=== PATIENT | female | born 1960 | race Caucasian/White ===

== ENCOUNTER → 2016-04-13 | Outpatient (CLI) | payer OTHER ==
[~2016-04-13] MED LIST: ADAL40KI SC; ALBUAER19 INH; DICL-201 PO; EPP3/2 IM; FOLI1TAB7 PO; HYDC25 PO; LEVO150T PO; LOSA50TA6 PO; METH2.5T PO; MOME200A INH; NTRGSL/4 UT; PRED20TA2 PO; RANI150T3 PO; SYN175 PO
[2016-04-13 13:25] LABS: HEMATOCRIT 41.9 % (37-47); MEAN CELL VOLUME 92.3 fL (80-100); MEAN CORPUSCULAR HEMOGLOBIN 32.2 pg (25-34); MEAN CORPUSCULAR HGB CONC 34.8 g/dl (32-36); MEAN PLATELET VOLUME 11.3 fL (7.4-10.4); PLATELET COUNT 243 K/uL (130-400); RED BLOOD COUNT 4.54 M/uL (4.2-5.4); WHITE BLOOD COUNT 6.11 K/uL (4.8-10.8)
[2016-04-13 13:34] LABS: ALT/SGPT 72 U/L (12-78); CREATININE 0.98 mg/dl (0.60-1.20)
[2016-04-13 13:36] LABS: ALKALINE PHOSPHATASE 76 U/L (45-117); AST/SGOT 30 U/L (15-37)
== END | disposition home or self-care (01) ==
LOC: C.LAB1850 11:44
PROVIDERS: ATTEND Internal Medicine Rheumatology
DX: M46.90 Unspecified inflammatory spondylopathy, site unspecified (principal); Z79.899 Other long term (current) drug therapy

== ENCOUNTER → 2016-10-06 | Outpatient (CLI) | payer OTHER ==
[2016-10-06 15:01] LABS: THYROID STIMULATING HORMONE 0.493 uIu/ml (0.300-4.500)
== END | disposition home or self-care (01) ==
LOC: C.LAB1850 13:06
PROVIDERS: ATTEND Family Medicine
DX: E03.9 Hypothyroidism, unspecified (principal)

== ENCOUNTER → 2016-10-14 | Outpatient (CLI) | payer OTHER | END | disposition home or self-care (01) | LOC: C.PATHSPEC 11:33 | PROVIDERS: ATTEND Surgery | DX: R22.9 Localized swelling, mass and lump, unspecified (principal); D18.09 Hemangioma of other sites ==

== ENCOUNTER 2016-10-18 15:54 | Emergency (ER) | payer OTHER ==
[~2016-10-18] VITALS: Ht 170.2 cm; Wt 111.9 kg
[~2016-10-18 15:54] MED LIST changes: -EPP3/2 IM; -FOLI1TAB7 PO; -METH2.5T PO; -PRED20TA2 PO; -RANI150T3 PO
[2016-10-18 15:57] VITALS: TEMP 36.8; Ht 170.2 cm; Wt 111.9 kg
[2016-10-18] MEDS ORDERED: DiphenhydrAMINE HCL 50 MG/ML VIAL IV STA (15:58)
[2016-10-18] MEDS ORDERED: METHYLPREDNISOLONE 125 MG VIAL IV STA (15:58)
[2016-10-18] MEDS ORDERED: SODIUM CHLORIDE 0.9% 1000ML 1,000 ML IV STA (15:58)
[2016-10-18] MEDS ORDERED: RANITIDINE HCL 50 MG/100 ML D5W IV STA (15:58)
[2016-10-18 16:02] VITALS: O2SAT 97
[2016-10-18] MEDS ORDERED: ONDANSETRON INJ 2 MG/ML 2 ML VIAL ONE (16:04)
[2016-10-18] MEDS ORDERED: ONDANSETRON INJ 2 MG/ML 2 ML VIAL IV STA (16:04)
[2016-10-18] MEDS ORDERED: METH2.5T PO (16:33)
[2016-10-18] MEDS ORDERED: FOLI1TAB7 PO (16:33)
--- NOTE | 2016-10-18 16:47 | EMERGENCY ROOM VISIT NOTE ---
ED Visit Note First contact with patient: 15:57 CHIEF COMPLAINT: Allergic reaction HISTORY OF PRESENT ILLNESS: This 56 y/o female patient presents to the emergency department 20 minutes after they developed sudden onset of SOB and itching after being stung by a bee. The patient gave herself an epipen The patient does not have swelling of the face and lips or a sensation of swelling in the throat. The patient has had shortness of breath. Has not had previous reactions and like this before. REVIEW OF SYSTEMS: A review of systems was performed with positives and pertinent negatives listed in the history of present illness. All other systems were reviewed and are negative. ALLERGIES: Bees, CHeese, Hydromorphone, Latex, Milk, Pens, Yogurt MEDICATIONS: See Nursing notes PMH: Allergic reactions SOCIAL HISTORY: Lives at home with PHYSICAL EXAM:VITALS: Vitals are noted on the nurse's note and reviewed by myself. Vital signs stable. GENERAL: 56 year old female, in moderate distress, nondiaphoretic, well- developed well-nourished. THROAT: No pharyngeal edema or injection, no exudates or tonsillar hypertrophy. Airway patent. LUNGS: Clear to auscultation and breath sounds equal, no wheezes, rales, or rhonchi. EYES: PERRLA, EOMI, no discharge or injection. NEUROLOGICAL: Alert and oriented to person, place, and time. Normal sensation to light and sharp touch. HEART: Regular rate without murmurs, ectopy, gallops, or rubs. SKIN: Diffuse urticarial rash, beesting present Rt leg. The lips are not swollen. There is no periorbital swelling. EMERGENCY DEPARTMENT COURSE: I examined the patient. The patient was given Solumedrol, Zantac and Benadryl. EKG was observed by me shows sinus bradycardia with first-degree AV block with no ectopy or ischemia unchanged from previous.Rate of 79. Patient was frequently reassessed in the emergency department and had much improvement after the medications. She was observed for a total of 2 hours in the emergency department. [place] much improved and was discharged in stable condition with the instructions noted below. DIAGNOSIS: Allergic Reaction DISCHARGE INSTRUCTIONS & TREATMENT: Benadryl 50 mg every 6 hrs PLUS Zantac 150 mg every 12 hrs PLUS Prednisone once a day for itch. Keep cool - no hot showers. Follow-up family Current/Historical Medications Scheduled Adalimumab (Humira Pen), 40 MG SC [id number] Diclofenac (Voltaren), 75 MG PO BID Hydrochlorothiazide (Hctz *), 25 MG PO QAM Levothyroxine Sodium (Synthroid), 1 TAB PO Q2D Levothyroxine Sodium (Synthroid), 150 MCG PO Q2D Losartan Potassium (Cozaar), 50 MG PO QAM Nitroglycerin (Nitrostat), 0.4 MG UT PRN Scheduled PRN Albuterol Inhaler (Ventolin Inhaler), 2 PUFFS INH QID PRN for SOB/Wheezing Mometasone Furoate-Formoterol (Dulera 200/5 Mcg), 2 AER INH BID PRN for ASTHMA EXACERBATION Allergies Coded Allergies: Butalbital (Verified Allergy, Severe, HIVES, 09/16/15) Latex (Verified Allergy, Severe, ITCHING / ASTHMA, 09/16/15) Cheese (Verified Allergy, Intermediate, DAIRY CAUSES JOINT SWELLING AND GI UPSET, 09/16/15) Milk (Verified Allergy, Intermediate, DAIRY CAUSES JOINT PAIN AND GI UPSET , 09/16/15) Yogurt (Verified Allergy, Intermediate, DAIRY CAUSES JOINT PAIN AND GI UPSET, 09/16/15) BEE STING (Verified Allergy, Unknown, HIVES, 09/16/15) Hydromorphone (Verified Allergy, Unknown, difficulty swallowing, 09/16/15) pt Penicillins (Verified Allergy, Unknown, HIVES, 09/16/15) Vital Signs Date Time Temp Pulse Resp B/P (MAP) Pulse Ox O2 Delivery O2 Flow Rate FiO2 10/18/16 16:26 82 18 116/70 96 Nasal Cannula 2.0 10/18/16 16:10 94 20 115/80 95 Nasal Cannula 2.0 10/18/16 16:05 97 Room Air 10/18/16 16:02 97 Nasal Cannula 2.0 10/18/16 16:02 97 Nasal Cannula 2.0 10/18/16 15:57 36.8 134 24 160/77 95 Room Air Medications Administered Medications (Trade) Dose Ordered Sig/Chris Route Start Time Stop Time Status Last Admin Dose Admin Sodium Chloride 1,000 ml @ 999 mls/hr Q1H1M STAT IV 10/18/16 15:58 10/18/16 16:58 10/18/16 16:03 999 MLS/HR Methylprednisolone Sodium Succinate (Solu-Medrol IV) 125 mg NOW STAT IV 10/18/16 15:58 10/18/16 16:00 DC 10/18/16 16:03 125 MG Ranitidine HCl (zANTac IV) 50 mg NOW STAT IV 10/18/16 15:58 10/18/16 16:00 DC 10/18/16 16:03 50 MG Diphenhydramine HCl (Benadryl Inj) 50 mg NOW STAT IV 10/18/16 15:58 10/18/16 16:00 DC 10/18/16 16:03 50 MG Ondansetron HCl (Zofran Inj) 4 mg NOW STAT IV 10/18/16 16:04 10/18/16 16:05 DC 10/18/16 16:09 4 MG Departure Information Referrals Brooklyn Kaur DO (PCP) Patient Instructions My [facility]
[2016-10-18] MEDS ORDERED: RANI150T3 PO (17:46)
[2016-10-18] MEDS ORDERED: EPP3/2 IM (17:46)
[2016-10-18] MEDS ORDERED: PRED20TA2 PO (17:46)
[2016-10-18 17:58] VITALS: BP 142/69; PULSE 78; O2SAT 97
== END 2016-10-18 17:53 | disposition home or self-care (01) ==
LOC: C.EDB 15:55 → C.ED 17:53
DX: T63.441A Toxic effect of venom of bees, accidental (unintentional), initial encounter (principal); X58.XXXA Exposure to other specified factors, initial encounter; Z79.899 Other long term (current) drug therapy

== ENCOUNTER → 2016-10-19 | Outpatient (CLI) | payer OTHER ==
[~2016-10-19] MED LIST changes: +EPP3/2 IM; +FOLI1TAB7 PO; +METH2.5T PO; +PRED20TA2 PO; +RANI150T3 PO
--- NOTE | 2016-10-19 14:45 | DIAGNOSTIC IMAGING REPORT ---
RIGHT FOOT MIN 3 VIEWS ROUTINE CLINICAL HISTORY: M46.90 [id number] Long-term use of immunosuppress Right COMPARISON: None. DISCUSSION: Small heel spur. Small bunion deformity distal first metatarsal. No acute bony abnormality. Cortical margins are intact. No significant soft tissue edema IMPRESSION: Small bunion deformity distal first metatarsal. Heel spur. Otherwise negative study The above report was generated using voice recognition software. It may contain grammatical, syntax or spelling errors. Electronically signed by: Sadiq Rodríguez M.D. 10/19/2016 2:44 PM Dictated Date/Time: 10/19/2016 2:43 PM
== END | disposition home or self-care (01) ==
LOC: C.RAD1850 14:20
PROVIDERS: ATTEND Internal Medicine Rheumatology
DX: M46.90 Unspecified inflammatory spondylopathy, site unspecified (principal); M79.671 Pain in right foot; Z79.1 Long term (current) use of non-steroidal anti-inflammatories (NSAID); Z79.899 Other long term (current) drug therapy; M21.611 Bunion of right foot; M77.31 Calcaneal spur, right foot

== ENCOUNTER → 2016-10-22 | Outpatient (CLI) | payer OTHER | END | disposition home or self-care (01) | LOC: C.PATHSPEC 17:02 | PROVIDERS: ATTEND Orthopaedic Surgery | DX: L98.0 Pyogenic granuloma (principal) ==

== ENCOUNTER → 2017-04-15 | Outpatient (CLI) | payer OTHER ==
[~2017-04-15] MED LIST changes: -FOLI1TAB7 PO; +FOLI1TAB8 PO; -RANI150T3 PO
--- NOTE | 2017-04-15 15:01 | DIAGNOSTIC IMAGING REPORT ---
CHEST 2 VIEWS ROUTINE HISTORY: Z20.1 Tuberculosis [id number] COMPARISON: Chest 04/14/2015. FINDINGS: The lungs are clear. Cardiac silhouette is normal in size. No pleural effusions. No pneumothorax. IMPRESSION: No acute process. Electronically signed by: Declan Geller M.D. 04/15/2017 3:00 PM Dictated Date/Time: 04/15/2017 2:57 PM
== END | disposition home or self-care (01) ==
LOC: C.RAD1850 14:49
PROVIDERS: ATTEND Internal Medicine Rheumatology
DX: Z20.1 Contact with and (suspected) exposure to tuberculosis (principal)

== ENCOUNTER → 2017-05-03 | Outpatient (CLI) | payer OTHER ==
[~2017-05-03] MED LIST changes: -PRED20TA2 PO
--- NOTE | 2017-05-05 14:30 | MAMMOGRAPHY REPORT ---
BILATERAL DIGITAL SCREENING MAMMOGRAM TOMOSYNTHESIS WITH CAD: 05/03/2017 CLINICAL HISTORY: Routine screening. Patient has no complaints. TECHNIQUE: Breast tomosynthesis in addition to standard 2D mammography was performed. Current study was also evaluated with a Computer Aided Detection (CAD) system. COMPARISON: Comparison is made to exam dated: 04/08/2005, 08/28/08, 10/15/09, 11/24/10, 07/18/12, 08/01/13, 08/06/14 mammograms. BREAST COMPOSITION: There are scattered areas of fibroglandular density in both breasts. FINDINGS: There is a newly visualized 5 mm focal asymmetry in the lower inner middle one third of the left breast, for which additional spot compression tomosynthesis views and possible ultrasound are r ecommended. There are scattered benign-appearing round and punctate microcalcifications, stable compared to prior exams. No other suspicious masses, calcifications, areas of architectural distortion or asymmetries are seen bilaterally. IMPRESSION: ACR BI-RADS CATEGORY 0: INCOMPLETE EVALUATION: NEED ADDITIONAL IMAGING EVALUATION A newly visualized 5 mm focal asymmetry in the lower inner left breast needs additional imaging evalu ation. The patient will be contacted to schedule an appointment. Approximately 10% of breast cancers are not detected with mammography. A negative mammographic report should not delay biopsy if a clinically suggestive mass is present. Margoth Nj M.D. ay/:05/05/2017 09:19:24 Informatica Developer: Thai Padilla M, [facility] letter sent: Addl Imaging 0 BI-RADS Code: ACR BI-RADS Category 0: Incomplete Evaluation: Need Additional Imaging Evaluation
== END | disposition home or self-care (01) ==
LOC: C.MAMM 13:54
PROVIDERS: ATTEND Family Medicine
DX: Z12.31 Encounter for screening mammogram for malignant neoplasm of breast (principal); N64.89 Other specified disorders of breast

== ENCOUNTER → 2017-05-18 | Outpatient (CLI) | payer OTHER ==
--- NOTE | 2017-05-18 15:14 | MAMMOGRAPHY REPORT ---
UNILATERAL LEFT DIGITAL DIAGNOSTIC MAMMOGRAM TOMOSYNTHESIS AND TARGETED LEFT ULTRASOUND: 05/18/2017 CLINICAL HISTORY: 57-year-old woman called back from screening mammography for a focal asymmetry in t he lower inner quadrant of the left breast. Family history of breast cancer = mother. During this d iagnostic appointment, the patient also reported a palpable ridge and pain in the superior left breas t, for which additional targeted ultrasound was performed. TECHNIQUE: Spot compression left CC and MLO tomosynthesis images were obtained. COMPARISON: Comparison is made to exams dated: 05/03/2017 mammogram - [facility], 02/2015 mammogram, 08/01/2013 mammogram, 07/18/2012 mammogram, 11/24/2010 mammogram, and 10/15/2009 mammog daysi [facility]. BREAST COMPOSITION: There are scattered areas of fibroglandular density in the left breast. FINDINGS: The additional spot compression tomosynthesis views of the left breast demonstrate a persi stent low-density round, partially circumscribed mass measuring 4.5 x 4.1 x 5.4 mm. No associated ca lcification or architectural distortion. Further characterization with ultrasound was performed. Targeted ultrasound was performed in the lower inner quadrant of the left breast. In the 8:00 axis, 5 cm from the nipple, there is a predominantly anechoic cystic appearing mass with internal echogenic focus and gently lobulated borders, parallel in orientation. No internal vascularity is demonstrate d. It measures approximately 5.2 x 2.1 x 2.5 mm and likely correlates with the mammographic mass. T his most likely represents a complicated cyst but a short interval follow-up targeted ultrasound is r ecommended to ensure stability in 6 months. Then additional ultrasound scanning was performed in the 12:00 left breast, 2 cm from the nipple, in the area of palpable ridge and pain described by the patient. Sonographically normal dense fibroglan dular tissue is seen without a suspicious solid or cystic mass. IMPRESSION: ACR-BI-RADS CATEGORY 3: PROBABLY BENIGN, TARGETED ULTRASOUND ACR-BI-RADS CATEGORY 3: PRO BABLY BENIGN 1. A persistent focal asymmetry/mass measuring 5.4 mm in the lower inner quadrant of the left breast mammographically is thought to correspond with a complicated cyst on ultrasound, seen in the 8:00 br east, 5 cm from the nipple. Given that this does not meet all the criteria for a simple cyst, a shor t interval follow-up diagnostic tomosynthesis mammogram and repeat targeted ultrasound is recommended to ensure stability in 6 months. 2. A palpable ridge and pain in the 11:00 to 12:00 left breast corresponds with sonographically norm al dense fibroglandular tissue on ultrasound. However, continued clinical follow-up is recommended, as biopsy of a clinically suspicious mass should not be precluded by negative imaging. These results and recommendations were discussed with the patient at the time of the exam. Approximately 10% of breast cancers are not detected with mammography. A negative mammographic report should not delay biopsy if a clinically suggestive mass is present. Margoth Nj M.D. ay/:05/18/2017 09:02:44 Director Cardiology: Rhea HEALY(Thai)(Dominick), [facility] letter sent: Follow Up Recommended 3 BI-RADS Code: ACR-BI-RADS Category 3: Probably Benign Ultrasound BI-RADS: ACR-BI-RADS Category 3: Pr obably Benign
== END | disposition home or self-care (01) ==
LOC: C.MAMM 08:29
PROVIDERS: ATTEND Family Medicine
DX: N64.89 Other specified disorders of breast (principal); N60.02 Solitary cyst of left breast; N64.4 Mastodynia

== ENCOUNTER → 2017-11-15 | Outpatient (CLI) | payer OTHER ==
--- NOTE | 2017-11-15 15:14 | MAMMOGRAPHY REPORT ---
UNILATERAL LEFT DIGITAL DIAGNOSTIC MAMMOGRAM TOMOSYNTHESIS WITH CAD AND TARGETED LEFT ULTRASOUND: 10/27 CLINICAL HISTORY: 57-year-old woman presents for follow-up in the left breast for a probably benign 5 mm focal asymmetry noted in the lower inner quadrant. TECHNIQUE: Left breast CC and MLO 2D and tomosynthesis images were obtained. Current study was also evaluated with a Computer Aided Detection (CAD) system. COMPARISON: Comparison is made to exams dated: 05/18/2017 mammogram, 05/03/2017 mammogram - [facility], 08/06/2014 mammogram, 08/01/2013 mammogram, 07/18/2012 mammogram, and 11/24/2010 mammog [facility]. BREAST COMPOSITION: There are scattered areas of fibroglandular density in left breast. FINDINGS: There is a persistent gently lobulated 5.8 x 3.7 x 4.8 mm mass in the lower inner middle on e third of the left breast. Possibly minimally larger in size comparing to the prior mammograms. No associated spiculation or calcification. No other suspicious masses, asymmetries, calcifications or architectural distortion identified in the left breast. Repeat targeted ultrasound was performed in the lower inner quadrant of the left breast with particul ar attention to the 8:00 axis. In the 8:00 left breast, 5 cm from the nipple, there is a parallel mi xed anechoic and isoechoic cystic appearing mass measuring 5.8 x 2.5 x 3.7 mm. This is slightly incr eased in size but more cystic in appearance when comparing to the prior ultrasound at which time it m easured 5.2 x 2.5 x 2.4 mm. Although this could represent an increasing cyst given the interval incr ease in size mammographically and sonographically, definitive characterization with an ultrasound-maira ded core biopsy is recommended. IMPRESSION: ACR BI-RADS CATEGORY 4: SUSPICIOUS, ULTRASOUND ACR BI-RADS CATEGORY 4: SUSPICIOUS Left breast ultrasound-guided core biopsy is recommended in the 8:00 axis, 5 cm from the nipple for a n increasing possible complicated cyst seen both mammographically and on ultrasound. These results and recommendations were discussed with the patient at the time of the exam. She tenta tively scheduled the biopsy prior to leaving the department. Some breast cancers are not detected with mammography. A negative mammographic report should not nakul y biopsy if a clinically suggestive mass is present. Margoth Nj M.D. ay/:11/15/2017 14:17:26 Clutch Specialist: RT Rashida(Thai)(M), [facility] letter sent: Abnormal 06/30 OVERALL STUDY BIRADS: 4 Suspicious abnormality
== END | disposition home or self-care (01) ==
LOC: C.MAMM 08:49
PROVIDERS: ATTEND Family Medicine
DX: N64.9 Disorder of breast, unspecified (principal)

== ENCOUNTER → 2017-11-16 | Outpatient (CLI) | payer OTHER ==
--- NOTE | 2017-11-16 09:08 | Discharge Instructions ---
Discharge Instructions Procedure Procedure Date: Nov 16, 2017. Reason for visit: Left Mass. Discharge Discharge Date: Nov 16, 2017. Discharge Diagnosis: post left breast 8:00 ultrasound guided core biopsy Instructions Activity Recommendations: Additional Limitations (see below) Return to School/Work: no limitations Recommended Home Diet: No Limitations Provider Instructions: ACTIVITY RECOMMENDATIONS: * No lifting, pushing, pulling or exercising the affected side for three days. RETURN TO SCHOOL/WORK: * You may return to work/school after the procedure, but do not perform any strenuous activities for 24 to 48 hours. MEDICATIONS: * Tylenol (two 325 mg) every four to six hours if needed for mild pain (if not allergic to Tylenol). DIET: * Resume previous diet. SPECIAL CARE INSTRUCTIONS: * Keep biopsy site dry for 24 hours. May shower after 24 hours, but do not soak (bathe) incision. May remove Tegaderm (plastic patch) 24 hours after procedure * Leave the steri-strips on for one week. Allow the steri-strips to fall off by themselves. If not off after one week, you may remove them. You may place a Bandaid crosswise over the strips, if desired. * Apply ice 10 minutes on and 10 minutes off as needed. * Wear a bra at bedtime to sleep more comfortably for 2-3 days. * Your referring physician should have the results after approximately 5 to 7 business days. * Call for unusual bleeding, fever, drainage, etc or if you have any questions call [phone] during normal business hours or after hours call Dr Nj, . FOLLOW UP VISIT: Follow-up with Referring Physician as scheduled. Allergies Coded Allergies: Butalbital (Verified Allergy, Severe, HIVES, 10/18/16) Latex (Verified Allergy, Severe, ITCHING / ASTHMA, 10/18/16) Cheese (Verified Allergy, Intermediate, DAIRY CAUSES JOINT SWELLING AND GI UPSET, 10/18/16) Milk (Verified Allergy, Intermediate, DAIRY CAUSES JOINT PAIN AND GI UPSET , 10/18/16) Yogurt (Verified Allergy, Intermediate, DAIRY CAUSES JOINT PAIN AND GI UPSET, 10/18/16) BEE STING (Verified Allergy, Unknown, HIVES, 10/18/16) Hydromorphone (Verified Allergy, Unknown, difficulty swallowing, 10/18/16) pt Penicillins (Verified Allergy, Unknown, HIVES, 10/18/16) Ewa Brush Recommendations: Call your doctor if: * Temperature above 101 degrees * Pain not relieved by pain medicine ordered * There is increased drainage or redness from any incision * You have any unanswered questions or concerns. Your Doctors Instructions noted above were prepared by provider Margoth Nj. Patient Signature Section: Patient Instructions Signature Page Smita Blancas Patient (or Guardian) Signature/Date: I have read and understand the instructions given to me by my caregivers. Caregiver/RN/Doctor Signature/Date: The above-named patient and/or guardian has received patient instructions on this date. + Original Patient Signature Page (only) stays with chart. Please make copy for patient.
--- NOTE | 2017-11-16 13:39 | MAMMOGRAPHY REPORT ---
ULTRASOUND GUIDED BIOPSY LEFT BREAST: 11/16/2017 CLINICAL HISTORY: 57-year-old woman presents for ultrasound-guided core biopsy in the left breast for a 5.8 mm predominantly cystic appearing mass identified on ultrasound, thought to correlate with the mammographic finding. COMPARISON: Prior mammograms dated 11/15/2017, 05/03/2017, 08/06/2014, 08/01/2013, 07/18/2012, 11/24/2010, . Diagnostic ultrasounds dated 11/15/2017, 05/18/2017. PATIENT CONSENT: The procedure, risks and benefits were discussed with the patient and informed conse nt was obtained both verbally and in writing. Specific risks to this procedure include: bleeding, in fection, puncture of adjacent structure, nontarget biopsy, sampling error, pain, metal allergy and me dication reaction. PROCEDURE DESCRIPTION: A time out was performed and the left breast was agreed as the site of biopsy. The skin was prepped and draped in the usual sterile fashion. The 5.8 mm cystic-appearing mass in th e 8:00 left breast was chosen as the target for biopsy. Subcutaneous and intraparenchymal 1% buffered lidocaine, with and without epinephrine, was administered as local anesthesia. A skin incision was m rohan. Through the incision, 3 samples were taken with a 14 gauge Achieve biopsy device. The mass dec reased in size after each core biopsy sample. A ribbon shaped metallic marker was placed at the biop sy site. Hemostasis was achieved after manual compression. The patient tolerated the procedure well a nd there was no immediate complication. The samples were sent to the pathology department in an appr opriately labeled container. Postprocedure left CC and ML tomosynthesis images were obtained. There is a new ribbon-shaped biopsy marker clip in the lower inner middle one third of the left breast, aligning with the mammographic f ocal asymmetry/mass in question. No significant postbiopsy hematoma identified. IMPRESSION: ULTRASOUND GUIDED BIOPSY Status post ultrasound-guided core biopsy of a 5.8 mm cystic-appearing mass in the 8:00 left breast, with biopsy marker clip placed at the site. The biopsy marker aligns with the mammographic mass in q uestion based on the post procedure mammograms. If pathology results are benign, recommend return to annual screening mammography schedule, due in April 2018. The patient will receive notification of the biopsy results from her referring physician. Margoth Clem M.D. ay/:11/16/2017 09:51:07 Competitive Intelligence Analyst: Gali Dang, [facility]
== END | disposition home or self-care (01) ==
LOC: C.MAMM 08:05
PROVIDERS: ATTEND Family Medicine
DX: N63.20 Unspecified lump in the left breast, unspecified quadrant (principal); N60.12 Diffuse cystic mastopathy of left breast

== ENCOUNTER → 2017-11-17 | Outpatient (CLI) | payer OTHER ==
--- NOTE | 2017-11-17 16:58 | DIAGNOSTIC IMAGING REPORT ---
L HAND MIN 3 VIEWS ROUTINE CLINICAL HISTORY: M46.90, M79.641,M79.642, M79.89, Z79.899 LEFT HAND PAIN. SWELLING. COMPARISON: None. DISCUSSION: Bony mineralization appears normal. No fractures are visualized. There are mild osteoarthritic changes. There are no erosive changes. IMPRESSION: 1. No acute fractures 2. Mild osteoarthritic changes 3. No evidence of erosive disease Electronically signed by: Venancio Romano M.D. 11/17/2017 4:56 PM Dictated Date/Time: 11/17/2017 4:55 PM
--- NOTE | 2017-11-17 17:02 | DIAGNOSTIC IMAGING REPORT ---
R HAND MIN 3 VIEWS ROUTINE CLINICAL HISTORY: M46.90, M79.641,M79.642, M79.89, Z79.899 RIGHT HAND PAIN AND SWELLING COMPARISON: None. DISCUSSION: The bony mineralization appears normal. No fractures are visualized. There are mild osteoarthritic changes. There is an equivocal tiny erosion involving the middle phalanx of the third digit. IMPRESSION: 1. No acute fractures 2. Mild osteoarthritic changes 3. Equivocal tiny erosion involving the middle phalanx of the third finger Electronically signed by: Venancio Romano M.D. 11/17/2017 5:01 PM Dictated Date/Time: 11/17/2017 5:00 PM
== END | disposition home or self-care (01) ==
LOC: C.RAD1850 16:43
PROVIDERS: ATTEND Internal Medicine Rheumatology
DX: M46.90 Unspecified inflammatory spondylopathy, site unspecified (principal); M79.641 Pain in right hand; M79.642 Pain in left hand; M79.89 Other specified soft tissue disorders; Z79.899 Other long term (current) drug therapy

== ENCOUNTER → 2017-11-18 | Outpatient (CLI) | payer OTHER ==
--- NOTE | 2017-11-18 09:00 | DIAGNOSTIC IMAGING REPORT ---
ULTRASOUND OF THE THYROID GLAND CLINICAL HISTORY: Heterogeneous thyroid. COMPARISON STUDY: CT of the neck dated 09/14/2013. Thyroid ultrasound dated 08/14/2013. TECHNIQUE: Real-time, grayscale, and color flow sonography of the thyroid gland is performed utilizing a high-frequency linear transducer. Images are reviewed in the transverse and longitudinal planes. FINDINGS: Right lobe: The right lobe of the thyroid gland is atrophic and heterogeneous in echotexture, measuring 3.6 x 1.4 x 1.1 cm. Left lobe: The left lobe of the thyroid gland is atrophic and heterogeneous in echotexture, measuring 3.6 x 0.8 x 0.8 cm. Isthmus: The thyroid isthmus is heterogeneous in echotexture, measuring 0.4 cm in AP diameter. IMPRESSION: 1. The thyroid gland is atrophic and markedly heterogeneous in echotexture. The appearance suggests the sequelae of thyroiditis. Clinical correlation will be required. The appearance has not significantly changed from the 2014 examination. 2. No discrete thyroid lesion is seen. Electronically signed by: Ck Malone M.D. 11/18/2017 11:01 AM Dictated Date/Time: 11/18/2017 8:57 AM
== END | disposition home or self-care (01) ==
LOC: C.ULTRBC 08:13
PROVIDERS: ATTEND Family Medicine
DX: E03.9 Hypothyroidism, unspecified (principal)

== ENCOUNTER 2022-08-04 07:47 | Observation (INO) ==
--- NOTE | 2022-07-16 10:45 | PAT Medication Instructions ---
Medication Instructions Date of Service July 16, 2022 Home Medications Medication Instructions Recorded albuterol sulfate 90 mcg/actuation 2 puff inhalation Q4H PRN 07/02/19 aerosol inhaler Shortness Of Breath #3 Inhalers potassium chloride 10 mEq 20 meq PO QAM #180 tabs 06/30/22 tablet,extended release folic acid 1 mg tablet 1 mg PO QAM albuterol sulfate 90 mcg/actuation aerosol inhaler 2 puff inhalation Q4H PRN Shortness Of Breath epinephrine 0.3 mg/0.3 mL injection, auto-injector 0.3 mg IM UD PRN Anaphylaxis omeprazole 20 mg tablet,delayed release 20 mg PO QAM secukinumab 150 mg/mL subcutaneous syringe (Cosentyx) 150 mg subcut Q30D mometasone-formoterol HFA 200 mcg-5 mcg/actuation aerosol inhaler (Dulera) 2 puff inhalation BID levothyroxine 150 mcg tablet 150 mcg PO UD levothyroxine 175 mcg tablet 175 mcg PO UD diltiazem HCl 180 mg capsule,extended release 24 hr 180 mg PO QAM furosemide 40 mg tablet 40 mg PO QAM montelukast 10 mg tablet 10 mg PO QAM potassium chloride 10 mEq tablet,extended release 20 meq PO QAM Continue as directed epinephrine 0.3 mg/0.3 mL injection, auto-injector 0.3 mg IM UD PRN Anaphylaxis (if needed) ASK your prescriber and surgeon secukinumab 150 mg/mL subcutaneous syringe (Cosentyx) 150 mg subcut Q30D DO NOT take the morning of surgery folic acid 1 mg tablet 1 mg PO QAM furosemide 40 mg tablet 40 mg PO QAM montelukast 10 mg tablet 10 mg PO QAM potassium chloride 10 mEq tablet,extended release 20 meq PO QAM Take morning of surgery With a small sip of water, OTHERWISE NOTHING TO EAT OR DRINK AFTER MIDNIGHT: albuterol sulfate 90 mcg/actuation aerosol inhaler 2 puff inhalation Q4H PRN Shortness Of Breath (use if needed; please bring rescue inhaler with you to hospital day of surgery if possible) omeprazole 20 mg tablet,delayed release 20 mg PO QAM mometasone-formoterol HFA 200 mcg-5 mcg/actuation aerosol inhaler (Dulera) 2 puff inhalation BID levothyroxine diltiazem HCl 180 mg capsule,extended release 24 hr 180 mg PO QAM Take evening before surgery albuterol sulfate 90 mcg/actuation aerosol inhaler 2 puff inhalation Q4H PRN Shortness Of Breath (if needed) mometasone-formoterol HFA 200 mcg-5 mcg/actuation aerosol inhaler (Dulera) 2 puff inhalation BID Other Notes If you have any questions please call us at [phone] or [phone] or [phone] or [phone]
--- NOTE | 2022-07-20 09:12 | Anesthesiology Consultation ---
Date of Service July 20, 2022 Assessment & Plan (1) Encounter for pre-operative examination: Chart Review Chart Review: Acceptable Risk for Surgery and Patient seen in Pre Admission Testing - Pt is NOT a Same Day Joint candidate (scheduled as 23 hour observation) due to comorbidities Per PAT appt on 07/20/22, patient denies any recent travel or large group activities. Pt is vaccinated for Covid. Will leave to surgeon's discretion if preop Covid testing needed. Educated on importance of using Covid precautions one week prior to surgery Pt last seen by cardio 06/22/22= symptomatic PVCsno current symptoms. No PVCs on examination. Has occasional palpitations but these are fleeting. Overall frequency of her PVCs is likely quite low. Do not see need for change in treatment. Ventricular tachycardiano symptoms suggestive of recurrent ventricular arrhythmias. Only 6 beat run during stress test in recovery. Dizzinessresolved. No recurrent orthopnea. No current complaints of chest pain. Dyspneamildnot limiting. Improved with iron infusion although she was not anemic. Mild mitral regurgitationconsider reassessment in couple years. Follow-up in 1 year. Teaching & Discussion Pre-Anesthesia Teaching/Discussion Notes: Instructed NPO after midnight before surgery,except medications with 15 cc of water. Medication instructions provided according to the PAT guidelines. History Surgery Operation Date: 08/04/22 08:50 Proposed Procedures p Right Total Knee Arthroplasty - Conor Toussaint MD Height/Weight Height: 5 ft 6.5 in Weight: 102.7 kg Allergies Allergy/AdvReac Type Severity Reaction Status Date / Time bee venom protein (honey bee) Allergy Severe Anaphylaxis Verified 07/15/22 15:18 hydromorphone Allergy Severe difficulty Verified 07/15/22 15:18 swallowing latex Allergy Severe ITCHING / Verified 07/15/22 15:18 ASTHMA butalbital Allergy Intermediate HIVES Verified 07/15/22 15:18 Penicillins Allergy Intermediate HIVES Verified 07/15/22 15:18 acetaminophen [From Fioricet] Allergy Hives Verified 07/15/22 15:18 Medications Home Medications Medication Instructions Recorded Confirmed Last Taken folic acid 1 mg tablet 1 mg PO QAM 12/11/18 07/15/22 06/29/22 albuterol sulfate 90 mcg/actuation 2 puff inhalation Q4H PRN 07/02/19 07/15/22 06/23/22 aerosol inhaler Shortness Of Breath #3 Inhalers epinephrine 0.3 mg/0.3 mL 0.3 mg IM UD PRN Anaphylaxis 09/06/19 07/15/22 Unknown injection, auto-injector omeprazole 20 mg tablet,delayed 20 mg PO QAM 09/06/19 07/15/22 06/29/22 release secukinumab 150 mg/mL subcutaneous 150 mg subcut Q30D 05/28/20 07/15/22 05/31/22 syringe (Cosentyx) mometasone-formoterol HFA 200 2 puff inhalation BID 01/12/21 07/15/22 06/30/22 06:00 mcg-5 mcg/actuation aerosol inhaler (Dulera) levothyroxine 150 mcg tablet 150 mcg PO UD 12/15/21 07/15/22 06/30/22 05:30 levothyroxine 175 mcg tablet 175 mcg PO UD 12/15/21 07/15/22 06/29/22 diltiazem HCl 180 mg 180 mg PO QAM 06/22/22 07/15/22 06/30/22 06:00 capsule,extended release 24 hr furosemide 40 mg tablet 40 mg PO QAM 06/22/22 07/15/22 06/29/22 montelukast 10 mg tablet 10 mg PO QAM 06/22/22 07/15/22 06/29/22 potassium chloride 10 mEq 20 meq PO QAM #180 tabs 06/30/22 07/15/22 06/29/22 tablet,extended release Past Medical History Medical History (Updated 07/20/22 @ 09:30 by Yolie Espino PA-C) Achilles tendinitis REASON FOR PREDNISONE ocassionally-"HAS NOT USED IN QUITE A LONG TIME" Allergic rhinitis Anemia Following with PCP and GI- s/p iron infusions Ankylosing spondylitis Follows routinely with rheumatology Asthma inh prn Breathing stable and well controlled Deep vein thrombosis RT LEG S/P KNEE SURGERY (DX WITH COMPARTMENT SYNDROME) 2009 - TREATED WITH AC X MONTHS - THEN D/RICARDO GERD (gastroesophageal reflux disease) Well controlled and stable Hypertension Hypothyroidism Multiple pulmonary nodules determined by computed tomography of lung MONITORING Non-sustained ventricular tachycardia FOLLOWING WITH [facility]. 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 Wheezing "OCCURS FROM TIME TO TIME" (RELATED TO ASTHMA AND ALLERGIES) Exercise / Class Metabolic Activity II 4-5 Yardwork/Stairs/Walk up hill (one flight of stairs - no chest pain or SOB ) Past Family History Family History Son Family history of diabetes mellitus Diabetes Mother Breast cancer Cancer Father Cancer Hypertension Asthma Allergies Grandmother Heart disease Other No family history of adverse response to anesthesia No family history of bleeding disorder Denies family history of Stroke Past Surgical History Surgical History H/O fasciotomy 2009 History of arthroscopy RT/LEFT KNEE 2009,2013 History of bilateral cataract extraction History of cardiac cath NO STENTS "WAS TOTALLY FINE" DONE AT [facility] > prior to 2009 History of carpal tunnel surgery of right wrist History of colonoscopy History of esophagogastroduodenoscopy (EGD) History of herniorrhaphy ABDOMINAL History of hysterectomy History of tooth extraction Hx of elbow surgery LEFT Retinal detachment LASER CORRECTION left EYE Status post trigger finger release Past Anesthesia History No Hx of Anesthesia Complications and No Family Hx of Anesthesia Complications History of PONV No Hx of Motion Sickness and History of PONV (improved with Zofran ) Social History Smoking Status: Never smoker Do You Dip or Chew Tobacco: No Hx Alcohol Use: No Hx Substance Use: No substance use type: does not use Review of Systems - Rare palpitation- chronic and stable - Hx of snoring- hx of sleep study- hx of TOMEKA- cannot tolerate CPAP - Hx of blood transfusion- 1980s s/p childbirth and surgery complication Patient denies chest pain, shortness of breath, dyspnea on exertion, cough, wheezing, palpitations. No hx of seizures, stroke, MS, apnea/snoring. No hx of blood transfusions Physical Exam Vital Signs VITALS BP 115/78 P 77bpm TEMP 98.4 SP02 99% RESP 16 Constitutional no acute distress ENMT Mouth: no TMJ clicking Thyromental Distance: < 3.5 Finger Breadths (3.0) Mallampati Class: II Permanent implant to right bottom molar Neck neck extension not limited Respiratory normal respiratory effort; no respiratory distress Auscultation: lungs clear to auscultation bilaterally; no wheezes Cardiovascular Rate/Rhythm: regular rate and regular rhythm Heart Sounds: no murmur Vessels: no carotid bruit Musculoskeletal Spine: + pain with cervical ROM (mild) Extremities: extremities normal to inspection Psychiatric Orientation: alert Lab Results Anesthesia Preop Results Results Anesthesia Widget: WBC 8.68 K/ul (4.8-10.8) 07/20/22 Hgb 14.9 g/dl (12.0-16.0) 07/20/22 Hct 44.6 % (37.0-47.0) 07/20/22 Plt 309 K/uL (130-400) 07/20/22 Na 140 mmol/L (136-145) 07/20/22 K 3.9 mmol/L (3.5-5.1) 07/20/22 Cl 101 mmol/L (98-107) 07/20/22 CO2 33 mmol/L (21-32) H 07/20/22 BUN 21 mg/dl (6-23) 07/20/22 Creat 1.05 mg/dl (0.6-1.2) 07/20/22 Glucose Level 99 mg/dl (70-99(Fasting)) 07/20/22 PT 10.5 Seconds (9.0-12.0) 07/20/22 PTT 27.5 Seconds (21.0-31.0) 07/20/22 INR 1.0 (0.9-1.1) 07/20/22 Blood Type O Positive 07/20/22 Antibody Screen NEGATIVE 07/20/22 Testing Electrocardiogram Date: 07/20/22 Findings: + NSR @ (67bpm ) Left axis deviation Chest X-Ray Date: 07/20/22 Findings: + NAD Echocardiogram Date: 06/12/21 EF: 60-65% LV Function: normal RWMA: + none Other Findings: + diastolic dysfunction (Grade 1); no LVH Valvular Disease: + MR (Mild) Compared with study from 12/28/2019, no significant change Stress Test Date: 12/28/19 Type: exercise (ECHO) Resting EF: 55 to 60% Resting LV Function: normal Negative stress echo and EKG for ischemia at 97% MPHR Approximately 1 minute into recovery, nonsustained ventricular tachycardia was noted up to 6 beats in duration. Frequent PVCs were also noted, subsiding 4 minutes and 15 seconds into recovery. VT and PVCs had a left bundle branch block morphology. Stress test study terminated due to lightheadedness. Lightheadedness started prior to ectopy/VT. No chest pain reported. Poorfair average exercise tolerance. Cervical Spine Date: 07/20/22 FINDINGS: There is no evidence for cervical spine instability during flexion or extension. C1-C2 articulation alignment does not significantly change. Moderate multilevel degenerative changes within the cervical spine are present. There is no fracture. IMPRESSION: 1. No evidence for cervical spine instability. 2. No cervical spine fractures. 3. Moderate multilevel degenerative changes within the cervical spine. Other Testing Carotid duplex 12/31/2019 = no sonographic evidence of hemodynamically significant stenosis in the right or left carotid arterial system. Antegrade flow is shown in the vertebral arteries. COVID-19 Risk Screen Screening Information COVID-19 Screen Date: 07/20/22 Exposure 21 Days Family/Household +COVID Last 21 Days: No Exposure 10 Days Any COVID Exposure Last 10 Days: No Symptoms Last 10 Days Experienced COVID Sx Last 10 Days: No + COVID 0-90 Days COVID + in Last 0-90 Days: No Risk Plan COVID Risk Plan: No Risk Identified Patient Education COVID Preop Screening Education Complete: Yes
[~2022-08-04 07:47] MED LIST changes: +ACETAMINOPHEN 500 MG TAB PO SCH; -ADAL40KI SC; -ALBUAER19 INH; +BUPIVACAINE 0.25% PF 30 ML VIAL ONE; +BUPIVACAINE 0.5 % 5 MG/1 ML PF 10ML VIAL ONE; +BUPIVACAINE LIPOSOME/PF 266 MG, BUPIVACAINE/EPINEPHRINE 50 ML, SODIUM CHLORIDE 0.9% PF ... INFIL SCH; +CeleBREX 200 MG CAP PO SCH; -DICL-201 PO; -EPP3/2 IM; +FAMOTIDINE 20 MG TAB PO SCH; -FOLI1TAB8 PO; -HYDC25 PO; -LEVO150T PO; -LOSA50TA6 PO; +LR 500ML BOLUS, THEN 15ML/HR IV SCH; +LR 60ML/HR IV SCH; -METH2.5T PO; +METOCLOPRAMIDE HCL 10 MG TABLET PO SCH; -MOME200A INH; -NTRGSL/4 UT; -SYN175 PO; +Scopolamine 1 MG TDSY TD SCH; +TRANEXAMIC ACID 1,000 MG **IV Intra-op IV SCH; +ceFAZolin 2000MG 2,000 MG/15 ML SYR IV SCH; +dexAMETHasone**PF** 10 MG/ML VIAL IV SCH
[2022-08-04] MEDS ORDERED: fentaNYL citrate PF 100 MCG/2 ML VIAL IV PRN (08:41)
[2022-08-04] MEDS ORDERED: ePHEDrine sulfate 50 MG/ML AMP IV PRN (08:41)
[2022-08-04] MEDS ORDERED: ONDANSETRON INJ 2 MG/ML 2 ML VIAL IV PRN ×2 (08:41→13:43)
[2022-08-04] MEDS ORDERED: ATROPINE SULFATE 0.1 MG/ML 10ML SYR IV PRN (08:41)
[2022-08-04] MEDS ORDERED: LIDOCAINE 2% 2 ML VIAL/AMP(20MG/ML) INFIL ONE (09:22)
[2022-08-04] MEDS ORDERED: KETAMINE 50 MG/5 ML SYRINGE ONE (09:22)
[2022-08-04] MEDS ORDERED: MIDAZOLAM HCL 1 MG/ML 2ML VIAL ONE ×2 (09:22→10:08)
[2022-08-04] MEDS ORDERED: PROPOFOL IV EMULSION 10 MG/ML 20 ML VIAL IV ONE ×2 (09:22→11:55)
--- NOTE | 2022-08-04 10:14 | History & Physical Bridge Note ---
Date of Service August 04, 2022 History & Physical Bridge Note I have examined the patient, reviewed the History & Physical and in the interval since the performance of the History & Physical I have noted the following changes of clinical significance: no changes noted
[2022-08-04] MEDS ORDERED: BUPIVACAINE LIPOSOME 1.3% 266 MG/20 ML VIAL ONE (10:15)
[2022-08-04] MEDS ORDERED: SODIUM CHLORIDE 0.9% PF 50 ML VIAL ONE (10:15)
[2022-08-04] MEDS ORDERED: BUPIVACAINE/EPINEPHRINE 0.25% 1:200,000 30 ML VIAL ONE (10:15)
[2022-08-04] MEDS ORDERED: VANCOMYCIN HCL 1000MG/20ML VIAL ONE (10:37)
[2022-08-04] MEDS ORDERED: GLYCOPYRROLATE 0.2 MG/ML VIAL ONE (11:17)
[2022-08-04] MEDS ORDERED: KETOROLAC 30 MG/ML VIAL ONE (11:57)
--- NOTE | 2022-08-04 12:18 | Operative Report ---
PG Post Operative Report Pre & Post Diagnosis Operation Date: 08/04/22 10:20 Pre-Op Diagnosis: Right Knee Degenerative Joint Disease Post-Op Diagnosis: Right Knee Degenerative Joint Disease I identified the patient and participated in the time-out.: Yes Procedure Operation Date: 08/04/22 10:20 Actual Procedures p Right Total Knee Arthroplasty, Cemented(Right) - Conor Toussaint MD Surgeon Conor Toussaint MD Repulping Supervisor Abebe Martinez PA-C Estimated Blood Loss 50 Findings Consistent with Post-Op Diagnosis Operative findings reveal advanced right knee DJD. She had grade 4 [id number] disease in all 3 compartments most severe in the medial side. Moderate to large knee joint effusion. Fixed varus deformity to her knee. Specimens Right knee sent for pathology Anesthesia Type General Regional Disposition Accompanied Patient To Recovery: No Indications Patient is 62-year-old female has had a long history of bilateral knee pain and discomfort describes gotten worse over time. She does a history of a right knee arthroscopy in the past complicated by postoperative compartment syndrome. She had recovered from this but developed progressive persistent knee pain and discomfort. She been through extensive conservative treatment. X-rays show advanced knee arthritis and she elected proceed with total knee arthroplasty. We did add an additional gram of vancomycin into her cemented due to her increased risk for infection based on her medical comorbidities along with the several surgeries she has had on this right leg. Description of Procedure Operative implants consist of: 1. Biomet Vanguard size 62.5 right posterior stabilized femoral component. 2. Biomet size 71 tibial tray. 3. 10 mm posterior stabilized polyethylene insert. 4. 28 x 8 all poly patella. The patient was taken the operating, identified, and placed on the operating table supine position protectors were properly padded. IV antibiotics tried by anesthesia team. A spinal anesthetic and abductor canal block had provided in the holding area. Gonzalez catheter was placed in sterile fashion. Right thigh tourniquet was then placed in the right lower extremities then prepped and draped in usual sterile fashion. The right leg was elevated exsanguinated with use of an Esmarch and tourniquet placed at 300 mmHg. An anterior approach of the right knee was then performed to longitudinal incision centered over the patella. Sharp dissection was carried through subcutaneous tissue down the extensor mechanism. A medial parapatellar arthrotomy incision was made. Some subperiosteal dissection was c arried out medially. The fat pad was resected from Neath patella tendon. Lateral patellofemoral ligament was released. Patella subluxated laterally and the knee was flexed. The osteophytes taken off distal femur. The ACL and PCL were then released from distal femur the tibia subluxated anteriorly. External tibial alignment jig was then placed in the interface the tibia and adjusted 14 mm medially. Proximal tibial cut was made remove about a millimeter bone from the most deficient aspect medial tibial plateau. The tibia was then sized to a size 71. Attention drawn the femur. The distal femur was then with a sharp drop with intramedullary canal was suction. A right 5 degree valgus cutting guide was placed. This femoral cutting block was pinned in place. Distal femoral cut was made to take an additional 3 mm of bone off distal femur. Femur was then sized to a size 62.5. The AP cutting block was pinned parallel to the epicondylar axis which was 3 degrees of external rotation. Anterior cut, anterior chamfer, posterior cut, posterior chamfer cuts were made. The box cutting guide was placed in just slight lateral and the box cut was made. The knee was flexed. The remnants of the medial and lateral menisci were excised. The osteophyte taken off the posterior aspect of femur. A trial femoral component was placed. The tibial tray was pinned in maximum external rotation and the drill and stem punch were used to create defect in proximal tibia for the tibial tray. The knee was then trialed and the 10 mm insert fit most appropriately. Attention drawn the patella. Tissues. Patella thickness measured 22 mm in thickness was cut down to 13. Was sized to a size 28 patella. The lug holes were drilled for the 28 patella. The lateral osteophytes removed. Patella button was placed. Knee was taken through range of motion and the patella tracked nicely with no thumbs test. Attention drawn to placing permanent components. Nupathe all trial components were re moved. Bone plug was placed in the distal femur limit blood loss. Double batch Palacos G cement was mixed. We did add an additional gram of vancomycin due to her increased susceptibility for infection. A Biomet Vanguard size 62.5 right posterior stabilized femoral component, size 71 tibial tray, a 10 mm posterior stabilized polyethylene insert, and a 28 x 8 all poly patella then cemented in place. He was brought into full extension till cement hardened. Final cement check was then performed. The pericapsular tissues were injected with total of 100 cc of combination of 20 cc of Exparel, 30 cc normal saline, 50 cc of quarter percent Marcaine with epinephrine. Patient did receive 1 g tranexamic acid. The tourniquet was let down for final tourniquet time of 52 minutes. Hemostasis assured use electrocautery. Extensor mechanism then closed with combination 1 PDS suture #1 Vicryl suture in a [id number] fashion. Extensor mechanism checked found to be intact and subcutaneous tissues then closed with 2-0 Dexon suture in a buried interrupted fashion of skin and the skin was closed skin genie. Leg was then cleaned and dried and a sterile dressing was Xeroform, 4 x 4's, sterile ABD pad, sterile cast padding, Anderson bandage were applied. Patient then transferred to the recovery room in stable condition. Patient tolerated procedure well no complications. Abebe Martinez, my physician assistant chief of police, was present for the entire procedure. His assistance was essential and required for appropriate patient positioning, prepping and draping, surgical exposure, performing the technical details of the operation, placement the implants, closure of the wound, and placement of the sterile bandage. I attest to the content of the Intraoperative Record and any orders documented therein. Any exceptions are noted below.
--- NOTE | 2022-08-04 13:37 | XRay Report ---
TWO VIEWS RIGHT KNEE CLINICAL HISTORY: Postoperative examination. FINDINGS: AP and crosstable lateral portable views of the right knee are obtained. A right knee arthr oplasty is in near anatomic alignment. There has been undersurface remodeling of the patella. No acut e fracture is seen. There are expected postoperative changes around the knee including skin clips, so ft tissue edema, and subcutaneous gas. IMPRESSION: Expected postoperative changes status post right knee arthroplasty. No acute fracture is seen. ACT 112: Negative or not required by law. Electronically signed by: Ck Malone M.D. 08/04/2022 1:36 PM
[2022-08-04] MEDS ORDERED: diphenhydrAMINE Capsule 25 MG CAP PO PRN (13:43)
[2022-08-04] MEDS ORDERED: SODIUM CHLORIDE 0.9% 1000ML 1,000 ML IV SCH (13:43)
[2022-08-04] MEDS ORDERED: ALUMINUM/MAGNESIUM SUSP 30 ML UDC PO PRN (13:43)
[2022-08-04] MEDS ORDERED: PHARMACY GLYCEMIC MGMT CONSULT PRN (13:43)
[2022-08-04] MEDS ORDERED: METOCLOPRAMIDE HCL INJ 5 MG/ML 2 ML VIAL IV PRN (13:43)
[2022-08-04] MEDS ORDERED: GLUCOSE 10 TAB/TUBE PO PRN ×2 (13:43→14:45)
[2022-08-04] MEDS ORDERED: GLUCAGON FOR INJ 1 MG VIAL SQ PRN (13:43)
[2022-08-04] MEDS ORDERED: bisacodyL 10 MG SUPP PR PRN (13:43)
[2022-08-04] MEDS ORDERED: CARBOHYDRATES FOR HYPOGLYCEMIA PO PRN ×2 (13:43→14:45)
[2022-08-04] MEDS ORDERED: MAGNESIUM HYDROXIDE SUSP 30 ML UDC PO PRN (13:43)
[2022-08-04] MEDS ORDERED: DEXTROSE 50% 50 ML SYRINGE IV PRN ×2 (13:43→14:45)
[2022-08-04] MEDS ORDERED: SECUKINUMAB 150 MG/ML SQ SCH (13:43)
[2022-08-04] MEDS ORDERED: ALBUTEROL HFA 8 GM INHALER INH PRN (13:43)
[2022-08-04] MEDS ORDERED: HYDROmorphone INJ 0.5 MG/0.5 ML SYR IV PRN (13:43)
[2022-08-04] MEDS ORDERED: NALOXONE HCL 0.4 MG/1 ML VIAL/CARP IV PRN (13:43)
[2022-08-04] MEDS ORDERED: GLUCOSE 40% GEL 15 GM TUBE PO PRN ×2 (13:43→14:45)
[2022-08-04] MEDS ORDERED: EPINEPHrine INJ 1 MG/ML AMP IM PRN (13:59)
--- NOTE | 2022-08-04 14:01 | Anesthesiology Progress Note ---
Date of Service August 04, 2022 Anesthesia Post Procedure Vital Signs Vital Signs: Temp Pulse Pulse Resp BP Pulse Ox O2 Del Method 08/04/22 13:15 36.5 C 68 14 118/70 97 Nasal Cannula 08/04/22 13:00 36.5 C 74 22 119/75 100 Nasal Cannula 08/04/22 12:50 36.5 C 68 17 117/68 100 Nasal Cannula 08/04/22 12:40 68 18 115/62 99 Nasal Cannula 08/04/22 12:30 73 12 102/58 L 99 Nasal Cannula 08/04/22 12:20 77 16 107/61 99 Nasal Cannula 08/04/22 12:12 36.6 C 79 13 101/58 L 96 Nasal Cannula 08/04/22 08:50 36.8 C 80 18 151/84 H 98 Room Air O2 Flow Rate 08/04/22 13:15 2 08/04/22 13:00 2 08/04/22 12:50 2 08/04/22 12:40 3 08/04/22 12:30 3 08/04/22 12:20 3 08/04/22 12:12 3 08/04/22 08:50 Transfer of Care Handoff Completed per policy Notes Mental Status: alert / awake / arousable and participated in evaluation Patient Amnestic to Procedure: Yes Nausea / Vomiting: adequately controlled Pain: adequately controlled Airway Patency, RR, SpO2: stable & adequate BP & HR: stable & adequate Hydration State: stable & adequate Neuraxial Anesthesia: was administered and sensory block is resolving Anesthetic Complications: no major complications apparent and Pt Satisfied with anesthetic care
[2022-08-04] MEDS: ACETAMINOPHEN 500 MG TAB PO SCH ×2 (14:32→21:34)
--- NOTE | 2022-08-04 14:42 | Pharmacy Report ---
Glycemic Ortho Sign Off Note - Date of Service August 04, 2022 - Scope Glycemic Pharmacist consulted for glycemic control and to write orders per [facility] inpatient glycemic control protocol. - Objective Accuchecks BSG (last 24hrs):: 08/04/22 14:30 POC Glucose 134 H - Assessment * Pt does not have history of diabetes (HbA1c: 5.6% - 04/2022) and on no antidiabetic medications * Postop BSG of 134 mg/dL after receiving IV dexamethasone x 1 * Ordered Novolog with correctional insulin only * Appropriate to DC insulin and resume outpatient antidiabetic regimen at discharge * Goal is to maintain BSGs <200 mg/dl (ideally <150 mg/dl) to prevent post op complications - Plan For Inpatient Glycemic Control * Basal insulin * Not needed based on A1c, pre-op BSGs, and minimal risk factors for insulin resistance * Bolus insulin * Utilize low stress weight based NovoLog parameters per scale ACHS * Pharmacy has entered glycemic orders and is signing off of the glycemic consult. We will no longer be making adjustments to inpatient regimen. Please feel free to re-consult if needed. Thank you.
[2022-08-04] MEDS ORDERED: GLUCAGON FOR INJ 1 MG VIAL IM PRN (14:45)
[2022-08-04] MEDS: oxyCODONE HCL IR 5 MG TAB (IMMEDIATE RELEASE) PO PRN ×2 (16:39→22:13)
[2022-08-04] MEDS: Scopolamine CHECK PATCH PLACEMENT SCH (16:39)
[2022-08-04] MEDS: ASCORBIC ACID 500 MG TAB PO SCH (16:39)
[2022-08-04] MEDS: KETOROLAC 30 MG/ML VIAL IV SCH (17:50)
[2022-08-04] MEDS: INSULIN ASPART PER UNIT CHARGE SC SCH ×2 (17:57→22:11)
[2022-08-04] MEDS ORDERED: TRANEXAMIC ACID / 0.7% NACL 1,000 MG/100 ML BAG IV SCH (18:00)
[2022-08-04] MEDS: ceFAZolin 2000MG 2,000 MG/15 ML SYR IV SCH (18:46)
[2022-08-04] MEDS ORDERED: SENNA 8.6 MG TAB PO SCH (21:00)
[2022-08-04] MEDS: DOCUSATE SODIUM 100 MG CAP PO SCH (21:34)
[2022-08-04] MEDS: SENNA 8.6 MG TAB PO SCH (21:36)
[2022-08-04] MEDS: ASPIRIN 81 MG ECTAB PO SCH (22:00)
[2022-08-05] MEDS: KETOROLAC 30 MG/ML VIAL IV SCH ×2 (00:25→05:25)
[2022-08-05] MEDS: Scopolamine CHECK PATCH PLACEMENT SCH ×2 (00:26→09:02)
[2022-08-05] MEDS: ceFAZolin 2000MG 2,000 MG/15 ML SYR IV SCH (01:54)
[2022-08-05] MEDS: ACETAMINOPHEN 500 MG TAB PO SCH (05:24)
[2022-08-05] MEDS ORDERED: LEVOTHYROXINE SODIUM 150 MCG TABLET PO SCH (06:30)
[2022-08-05] MEDS: oxyCODONE HCL IR 5 MG TAB (IMMEDIATE RELEASE) PO PRN (06:41)
--- NOTE | 2022-08-05 07:41 | Progress Notes ---
SUBJECTIVE: A 62-year-old white female postoperative day 1 from a right knee replacement. She is do ing quite well. Some pain, but manageable. She is getting around her room pretty well. No chest pa in or shortness of breath. Not feeling dizzy or lightheaded. Hoping to go home today. OBJECTIVE: VITAL SIGNS: Temperature 36.7. Vital signs are stable. GENERAL: Physical examination shows a pleasant middle-aged female. She is walking around her room t his morning with a walker pretty well. LUNGS: Clear to auscultation. HEART: Regular rate and rhythm. ABDOMEN: Soft, nontender, nondistended. EXTREMITIES: Grossly neurovascularly intact except as follows. Examination of the right leg reveals the dressing to be clean, dry, and intact. She can do a good straight leg raise. She can dorsiflex and plantarflex her foot appropriately. She is neurologically intact. LABORATORY DATA: Labs are pending. ASSESSMENT: A 62-year-old white female postoperative day 1 from a right knee replacement, doing quit e well. Pain is controlled. She is neurologically intact. PLAN: 1. DVT prophylaxis including thigh-high TEDs, SCDs, and aspirin twice a day. 2. PT/OT. She can weight bear as tolerated. Right total knee protocol. 3. Pain control, doing okay with current pain regimen. 4. Disposition: Plan is to discharge her to home with some home health. She is also going to have some family assistance. Job ID: [id number]
[2022-08-05 07:49] LABS: Hematocrit (blood only) 35.6 % (37.0-47.0); Hemoglobin 12.2 g/dl (12.0-16.0); Mean Corpuscular Hemoglobin 29.1 pg (25.0-34.0); Mean Corpuscular Hgb Conc 34.3 g/dL (32.0-36.0); Mean Platelet Volume 10.4 fL (9.4-12.4); Platelet Count 235 K/uL (130-400); RDW Coefficient of Variation 15.9 % (11.5-14.5); RDW Standard Deviation 49.1 fL (36.4-46.3); Red Blood Count 4.19 M/uL (4.20-5.40); White Blood Count 16.41 K/ul (4.8-10.8)
[2022-08-05 08:10] LABS: Calcium 8.3 mg/dl (8.6-10.3); Potassium 4.1 mmol/L (3.5-5.1)
[2022-08-05 08:16] LABS: BUN Creatinine Ratio 19.1 (10-20); Creatinine Clr Calc Pharmacy 77.8 ml/min; Est GFR (African American) 79.4 ml/min; Est GFR (Non-African American) 68.5 ml/min
[2022-08-05] MEDS: INSULIN ASPART PER UNIT CHARGE SC SCH (08:36)
[2022-08-05] MEDS ORDERED: dilTIAZem HCL 180 MG CAPCR PO SCH (09:00)
[2022-08-05] MEDS ORDERED: FOLIC ACID 1 MG TAB PO SCH (09:00)
[2022-08-05] MEDS ORDERED: POTASSIUM CHLORIDE CRTAB 20 MEQ TABCR PO SCH (09:00)
[2022-08-05] MEDS ORDERED: FUROSEMIDE 40 MG TAB PO SCH (09:00)
[2022-08-05] MEDS ORDERED: FLUTICASONE/VILANTEROL 200/25MCG 14 PUFFS/INHALER INH SCH (09:00)
[2022-08-05] MEDS ORDERED: PANTOprazole 40 MG TAB PO SCH (09:00)
[2022-08-05] MEDS ORDERED: MONTELUKAST SODIUM 10 MG TABLET PO SCH (09:00)
[2022-08-05] MEDS ORDERED: MULTIVITAMIN TAB PO SCH (09:00)
[2022-08-05] MEDS: DOCUSATE SODIUM 100 MG CAP PO SCH (09:01)
[2022-08-05] MEDS: ASPIRIN 81 MG ECTAB PO SCH (09:01)
[2022-08-05] MEDS: SENNA 8.6 MG TAB PO SCH (09:02)
[2022-08-05] MEDS: ASCORBIC ACID 500 MG TAB PO SCH (09:02)
[2022-08-06] MEDS ORDERED: LEVOTHYROXINE SODIUM 175 MCG TABLET PO SCH (06:30)
--- NOTE | 2022-08-07 06:20 | Discharge Summary ---
Date of Service August 07, 2022 Discharge Data Procedures Performed Operation Date: 08/04/22 10:20 Actual Procedures p Right Total Knee Arthroplasty, Cemented(Right) - Conor Toussaint MD Hospital Course (1) Status post total right knee replacement: This is a 62 year old patient admitted on 08/04/22 and underwent total knee arthroplasty. She tolerated the procedure well and there were no complications. Transferred to the PACU post op and later to the orthopedic floor for further care. She was given ancef for antibiotic prophylaxis. She was also given MARIA D stockings, SCDs, and aspirin for DVT prophylaxis. Hemoglobin, hematocrit, and vital signs were monitored during her hospital stay and remained stable. Did not require any blood transfusions. There were no complications during her hospital stay. By post op day #1 the patient was tolerating a diabetic diet, pain was reasonably controlled with oral pain medicine, and she was participating in physical therapy. On post op day #1 the patient was discharged home and set up with home health care. She was given printed discharge instructions including prescriptions for extra strength tylenol, aspirin, cefadroxil, ketorolac, zofran, senokot, and oxycodone. Continue physical therapy, weight bearing as tolerated. Continue MARIA D stockings. Follow up approximately 2 weeks post op or sooner if there are problems or concerns. Coding Level of Care Code None Diagnoses Status post total right knee replacement Z96.651
== END 2022-08-05 10:04 | disposition home health service (06) ==
LOC: ASU 07:47 → 3N 07:47

== ENCOUNTER 2022-11-02 06:39 | Observation (INO) ==
--- NOTE | 2022-10-21 11:15 | Anesthesiology Consultation ---
Date of Service October 21, 2022 Assessment & Plan (1) Encounter for pre-operative examination: - Covid screening: Per digital advertising analyst on 10/21/22: No known infectious disease contacts or current infectious disease symptoms in past 10 days. No COVID positive test result in the past 90 days noted. - Outpatient joint assessment: Pt currently scheduled for inpatient pathway. If surgeon requests review for outpatient joint pathway, patient is not recommended candidate for outpatient joint program from anesthesia standpoint. - Cardiology visit (06/22/22): symptomatic PVCsno current symptoms. No PVCs on examination. Has occasional palpitations but these are fleeting. Overall frequency of her PVCs is likely quite low. Do not see need for change in treatment. Ventricular tachycardiano symptoms suggestive of recurrent ventricular arrhythmias. Only 6 beat run during stress test in recovery. Dizzinessresolved. No recurrent orthopnea. No current complaints of chest pain. Dyspneamildnot limiting. Improved with iron infusion although she was not anemic. Mild mitral regurgitationconsider reassessment in couple years. Follow-up in 1 year. - S/P Right TKA (08/04/22): SAB x1 attempt + PNB at [facility]. No issues noted per post-op anesthesia progress note. Chart Review Chart Review: Acceptable Risk for Surgery and Patient NOT seen in Pre Admission Testing History Surgery Operation Date: 11/02/22 10:40 Proposed Procedures p Left Total Knee Arthroplasty - Conor Toussaint MD Height/Weight Height: 5 ft 6.5 in Weight: 103.419 kg Allergies Allergy/AdvReac Type Severity Reaction Status Date / Time bee venom protein (honey bee) Allergy Severe Anaphylaxis Verified 10/21/22 10:34 hydromorphone Allergy Severe Difficulty Verified 10/21/22 11:05 swallowing latex Allergy Severe Itching, Verified 10/21/22 11:05 asthma butalbital Allergy Intermediate Hives Verified 10/21/22 11:05 Penicillins Allergy Intermediate Hives Verified 10/21/22 11:05 Medications Home Medications Medication Instructions Recorded Confirmed Last Taken folic acid 1 mg tablet 1 mg PO QAM 12/11/18 10/21/22 08/03/22 06:00 albuterol sulfate 90 mcg/actuation 2 puff inhalation Q4H PRN 07/02/19 10/21/22 06/23/22 aerosol inhaler Shortness Of Breath #3 Inhalers epinephrine 0.3 mg/0.3 mL 0.3 mg IM UD PRN Anaphylaxis 09/06/19 10/21/22 Unknown injection, auto-injector omeprazole 20 mg tablet,delayed 20 mg PO QAM 09/06/19 10/21/22 08/04/22 06:00 release secukinumab 150 mg/mL subcutaneous 150 mg subcut Q30D 05/28/20 10/21/22 06/30/22 syringe (Cosentyx) mometasone-formoterol HFA 200 2 puff inhalation BID 01/12/21 10/21/22 08/04/22 06:00 mcg-5 mcg/actuation aerosol inhaler (Dulera) levothyroxine 150 mcg tablet 150 mcg PO UD 12/15/21 10/21/22 08/03/22 06:00 levothyroxine 175 mcg tablet 175 mcg PO UD 12/15/21 10/21/22 08/04/22 06:00 diltiazem HCl 180 mg 180 mg PO QAM 06/22/22 10/21/22 08/04/22 06:00 capsule,extended release 24 hr furosemide 40 mg tablet 40 mg PO QAM 06/22/22 10/21/22 08/03/22 06:00 montelukast 10 mg tablet 10 mg PO QAM 06/22/22 10/21/22 08/03/22 06:00 potassium chloride 10 mEq 20 meq PO QAM #180 tabs 06/30/22 10/21/22 08/03/22 06:00 tablet,extended release Past Medical History Medical History Allergic rhinitis Anemia Following with PCP and GI s/p iron infusions (most recent 05/2022) Ankylosing spondylitis Follows with rheumatology Asthma Deep vein thrombosis RLE post-op knee surgery (dx compartment syndrome; 2009) Treated with AC x months then discontinued GERD (gastroesophageal reflux disease) Hypertension Hypothyroidism Left knee DJD Multiple pulmonary nodules determined by computed tomography of lung Under surveillance Non-sustained ventricular tachycardia Follows with [facility] [place] 6 beat run on stress testing and recovery in 2019- no symptoms suggestive of recurrent ventricular arrhythmias per 05/2022 cardio note TOMEKA (obstructive sleep apnea) Cannot tolerate device Restless leg syndrome Rheumatoid arthritis Follows with rheumatology Temporomandibular joint disorder No locking Past Family History Family History Son Family history of diabetes mellitus Diabetes Mother Breast cancer Cancer Father Cancer Hypertension Asthma Allergies Grandmother Heart disease Other No family history of adverse response to anesthesia No family history of bleeding disorder Denies family history of Stroke Past Surgical History Surgical History H/O fasciotomy 2009 History of arthroscopy L knee (2009, 2013) History of bilateral cataract extraction History of cardiac cath Remote ("prior to 2009")- no stents History of carpal tunnel surgery of right wrist History of colonoscopy History of esophagogastroduodenoscopy (EGD) History of herniorrhaphy Abdominal History of hysterectomy History of tooth extraction History of total knee replacement Right Hx of elbow surgery Left Retinal detachment Left eye laser correction Status post trigger finger release Social History Smoking Status: Never smoker Do You Dip or Chew Tobacco: No Hx Alcohol Use: No substance use type: does not use Lab Results Anesthesia Preop Results Results Anesthesia Widget: WBC 5.13 K/ul (4.8-10.8) 09/23/22 Hgb 13.4 g/dl (12.0-16.0) 09/23/22 Hct 40.4 % (37.0-47.0) 09/23/22 Plt 278 K/uL (130-400) 09/23/22 Na 139 mmol/L (136-145) 09/23/22 K 4.3 mmol/L (3.5-5.1) 09/23/22 Cl 106 mmol/L (98-107) 09/23/22 CO2 29 mmol/L (21-32) 09/23/22 BUN 18 mg/dl (6-23) 09/23/22 Creat 0.90 mg/dl (0.6-1.2) 09/23/22 Glucose Level 96 mg/dl (70-99(Fasting)) 09/23/22 PT 10.3 Seconds (9.0-12.0) 09/23/22 PTT 29.4 Seconds (21.0-31.0) 09/23/22 INR 0.9 (0.9-1.1) 09/23/22 Blood Type O Positive 09/23/22 Antibody Screen NEGATIVE 09/23/22 Testing Electrocardiogram Date: 07/20/22 Findings: + NSR @ (67bpm ) Left axis deviation Chest X-Ray Date: 07/20/22 Findings: + NAD Echocardiogram Date: 06/12/21 EF: 60-65% LV Function: normal RWMA: + none Other Findings: + diastolic dysfunction (Grade 1); no LVH Valvular Disease: + MR (Mild) Compared with study from 12/28/2019, no significant change Stress Test Date: 12/28/19 Type: exercise (ECHO) Resting EF: 55 to 60% Resting LV Function: normal Negative stress echo and EKG for ischemia at 97% MPHR Approximately 1 minute into recovery, nonsustained ventricular tachycardia was noted up to 6 beats in duration. Frequent PVCs were also noted, subsiding 4 minutes and 15 seconds into recovery. VT and PVCs had a left bundle branch block morphology. Stress test study terminated due to lightheadedness. Lightheadedness started prior to ectopy/VT. No chest pain reported. Poorfair average exercise tolerance. Cervical Spine Date: 07/20/22 FINDINGS: There is no evidence for cervical spine instability during flexion or extension. C1-C2 articulation alignment does not significantly change. Moderate multilevel degenerative changes within the cervical spine are present. There is no fracture. IMPRESSION: 1. No evidence for cervical spine instability. 2. No cervical spine fractures. 3. Moderate multilevel degenerative changes within the cervical spine. Other Testing Carotid duplex Date: 12/31/2019 no sonographic evidence of hemodynamically significant stenosis in the right or left carotid arterial system. Antegrade flow is shown in the vertebral arteries.
--- NOTE | 2022-10-30 09:12 | History & Physical Report ---
Date of Service October 30, 2022 Assessment & Plan (1) Osteoarthritis of knees, bilateral: (2) Status post total right knee replacement: Plan Assessment this 62-year-old female now 3 months out from right knee replacement with left knee DJD. She has failed conservative measures. Does a history of knee arthroscopy in the past. Plan work-up talked about treatment she is like to proceed with left knee replacement. Very happy with the right knee. We will take the operative left total knee replacement for the risk meant this procedure explained the patient could be not limited to DVT PE infection neurological and vascular bleeding palm pain limb range of motion test is fairly with symptoms incomplete review of system symptoms etc. The patient understands and desires to proceed. Informed consent was obtained. As far as discharge plan she is planned to be discharged to home. She went to physical therapy at [place] in the past and will do that again. DVT prophylaxis will be thigh-high teds, SCDs, baby aspirin twice a day History of Present Illness Chief Complaint: . Persistent left knee pain and discomfort Primary Care Provider: Nika Hernandez . Patient is a 62-year-old female with a long history of bilateral knee problems. As she has been through extensive conservative treatment in the past. She has had both of her knees scoped in the past and most recently her right knee replaced just about 3 months ago. She is done quite well from this. Really recovered pretty nicely. She continues to be Bassette disabled by left knee pain. Has a history of a left knee scope done by Dr. Patiño in 2016 patient been through extensive conservative treatment since then. She would like to have her left knee replaced. The right knee is done great. Allergies Allergy/AdvReac Type Severity Reaction Status Date / Time bee venom protein (honey bee) Allergy Severe Anaphylaxis Verified 10/21/22 10:34 hydromorphone Allergy Severe Difficulty Verified 10/21/22 11:05 swallowing latex Allergy Severe Itching, Verified 10/21/22 11:05 asthma butalbital Allergy Intermediate Hives Verified 10/21/22 11:05 Penicillins Allergy Intermediate Hives Verified 10/21/22 11:05 Home Medications Medication Instructions Recorded Confirmed Type folic acid 1 mg tablet 1 mg PO QAM 12/11/18 10/21/22 History albuterol sulfate 90 mcg/actuation 2 puff inhalation Q4H PRN 07/02/19 10/21/22 Rx aerosol inhaler Shortness Of Breath #3 Inhalers epinephrine 0.3 mg/0.3 mL 0.3 mg IM UD PRN Anaphylaxis 09/06/19 10/21/22 History injection, auto-injector omeprazole 20 mg tablet,delayed 20 mg PO QAM 09/06/19 10/21/22 History release secukinumab 150 mg/mL subcutaneous 150 mg subcut Q30D 05/28/20 10/21/22 History syringe (Cosentyx) mometasone-formoterol HFA 200 2 puff inhalation BID 01/12/21 10/21/22 History mcg-5 mcg/actuation aerosol inhaler (Dulera) levothyroxine 150 mcg tablet 150 mcg PO UD 12/15/21 10/21/22 History levothyroxine 175 mcg tablet 175 mcg PO UD 12/15/21 10/21/22 History diltiazem HCl 180 mg 180 mg PO QAM 06/22/22 10/21/22 History capsule,extended release 24 hr furosemide 40 mg tablet 40 mg PO QAM 06/22/22 10/21/22 History montelukast 10 mg tablet 10 mg PO QAM 06/22/22 10/21/22 History potassium chloride 10 mEq 20 meq PO QAM #180 tabs 06/30/22 10/21/22 Rx tablet,extended release Past Med/Surg History Medical History Allergic rhinitis Anemia Following with PCP and GI s/p iron infusions (most recent 05/2022) Ankylosing spondylitis Follows with rheumatology Asthma Deep vein thrombosis RLE post-op knee surgery (dx compartment syndrome; 2009) Treated with AC x months then discontinued GERD (gastroesophageal reflux disease) Hypertension Hypothyroidism Left knee DJD Multiple pulmonary nodules determined by computed tomography of lung Under surveillance Non-sustained ventricular tachycardia Follows with [facility] [place] cardiology 6 beat run on stress testing and recovery in 2019- no symptoms suggestive of recurrent ventricular arrhythmias per 05/2022 cardio note TOMEKA (obstructive sleep apnea) Cannot tolerate device Restless leg syndrome Rheumatoid arthritis Follows with rheumatology Temporomandibular joint disorder No locking Surgical History H/O fasciotomy 2009 History of arthroscopy L knee (2009, 2013) History of bilateral cataract extraction History of cardiac cath Remote ("prior to 2009")- no stents History of carpal tunnel surgery of right wrist History of colonoscopy History of esophagogastroduodenoscopy (EGD) History of herniorrhaphy Abdominal History of hysterectomy History of tooth extraction History of total knee replacement Right Hx of elbow surgery Left Retinal detachment Left eye laser correction Status post trigger finger release Family History Son Family history of diabetes mellitus Diabetes Mother Breast cancer Cancer Father Cancer Hypertension Asthma Allergies Grandmother Heart disease Other No family history of adverse response to anesthesia No family history of bleeding disorder Denies family history of Stroke Social History Smoking Status: Never smoker Second Hand Exposure: No; Do You Dip or Chew Tobacco: No; Hx Alcohol Use: No Preferred Language: Honduran Communication Ability: Effective Lumber Straightened Required: No Beliefs That Will Affect Care: None marital status: Current Living Situation: Family Current Living Situation Comment: 2 foster children and 1 grandchild current occupational status: employed current occupation: Mortgage Officer Feels Safe at Home: Yes Assistive Devices: Glasses Review of Systems All systems reviewed & are unremarkable except as noted in HPI & below. Physical Exam . Physical examination of the knees reveal patient ambulates independently. Examination of the left knee reveals a moderate soft tissue envelope. She got slight varus alignment to her knee. Tender medial joint line. Small knee effusion. Range of motion about 5-1 20. No instability. Examination of the right knee reveals well-healed incision. Minimal swelling. Range of motion 0-1 20. Good straight leg raise. X-rays x-rays of the left knee show advanced medial compartment arthritis. He is got complete loss of medial joint space. A little bit of tibiofemoral subluxation. . Constitutional WD/WN, vitals as above Respiratory normal respiratory effort, lungs clear to auscultation Cardiovascular RRR, no murmur, no edema Gastrointestinal (Abdomen) normal bowel sounds, soft, nontender, no hepatosplenomegaly Results & Data Results & Data Laboratory Results . Diagnostic Findings . PG Care Time/CCT Total # of Minutes Spent Total Time Spent with Patient: Total time spent is greater than 50% in coordination of care (as documented) at patient's floor/unit and/or counseling patient: Coding Level of Care Code None Diagnoses Osteoarthritis of knees, bilateral M17.0 Status post total right knee replacement Z96.651
[~2022-11-02 06:39] MED LIST changes: -BUPIVACAINE 0.25% PF 30 ML VIAL ONE; -BUPIVACAINE 0.5 % 5 MG/1 ML PF 10ML VIAL ONE; -CeleBREX 200 MG CAP PO SCH; +ROPIVACAINE 0.5% 5 MG/ML 30 ML VIAL ONE; -dexAMETHasone**PF** 10 MG/ML VIAL IV SCH
--- NOTE | 2022-11-02 06:55 | History & Physical Bridge Note ---
Date of Service November 02, 2022 History & Physical Bridge Note I have examined the patient, reviewed the History & Physical and in the interval since the performance of the History & Physical I have noted the following changes of clinical significance: no changes noted
[2022-11-02] MEDS: CeleBREX 200 MG CAP PO SCH (07:13)
[2022-11-02] MEDS: dexAMETHasone**PF** 10 MG/ML VIAL IV SCH ×2 (07:14→07:45)
[2022-11-02] MEDS ORDERED: ATROPINE SULFATE 0.1 MG/ML 10ML SYR IV PRN (07:39)
[2022-11-02] MEDS ORDERED: ePHEDrine sulfate 50 MG/ML AMP IV PRN (07:39)
[2022-11-02] MEDS ORDERED: fentaNYL citrate PF 100 MCG/2 ML VIAL IV PRN (07:39)
[2022-11-02] MEDS ORDERED: ONDANSETRON INJ 2 MG/ML 2 ML VIAL IV PRN ×2 (07:39→11:59)
[2022-11-02] MEDS ORDERED: MIDAZOLAM HCL 1 MG/ML 2ML VIAL ONE (07:42)
[2022-11-02] MEDS ORDERED: fentaNYL citrate PF 100 MCG/2 ML VIAL ONE (08:10)
[2022-11-02] MEDS ORDERED: SODIUM CHLORIDE 0.9% PF 50 ML VIAL ONE (08:27)
[2022-11-02] MEDS ORDERED: BUPIVACAINE/EPINEPHRINE 0.25% 1:200,000 30 ML VIAL ONE (08:27)
[2022-11-02] MEDS ORDERED: BUPIVACAINE LIPOSOME 1.3% 266 MG/20 ML VIAL ONE (08:28)
[2022-11-02] MEDS ORDERED: ONDANSETRON INJ 2 MG/ML 2 ML VIAL ONE (10:14)
--- NOTE | 2022-11-02 10:49 | Operative Report ---
PG Post Operative Report Pre & Post Diagnosis Operation Date: 11/02/22 08:40 Pre-Op Diagnosis: Left Knee Advanced Degenerative Joint Disease Post-Op Diagnosis: Left Knee Advanced Degenerative Joint Disease I identified the patient and participated in the time-out.: Yes Procedure Operation Date: 11/02/22 08:40 Actual Procedures p Left Total Knee Arthroplasty(Left) - Conor Toussaint MD Surgeon Conor Toussaint MD Cinder Crane Operator Abebe Martinez PA-C Estimated Blood Loss 50 Findings Consistent with Post-Op Diagnosis Operative findings were advanced left knee arthritis. She had grade 4 changes of the medial and patellofemoral compartments. Not much in way of bony eburnation but full-thickness cartilage loss. Moderate-sized joint effusion. Specimens Left knee sent for pathology Anesthesia Type Spinal MAC Complications none Disposition Accompanied Patient To Recovery: No Indications Patient is a 62-year-old female with a long history of bilateral knee pain discomfort is gradually gotten worse over time. She been through extensive conservative treatment which became less successful. She had her right knee replaced just about 3 months ago and is recovered quite nicely from this. She continued be limited by left knee pain. She elected proceed with left total knee arthroplasty. Description of Procedure Operative implants consist of: 1 Biomet Vanguard size 65 left posterior stabilized femoral component. 2. Biomet size 71 tibial tray. 3. 10 mm posterior stabilized polyethylene insert. 4. 28 x 8 all poly patella. The patient was taken the operating, identified, and placed on the operating table supine position. All contact areas were appropriately padded. IV antibiotics tried by anesthesia team. A spinal anesthetic and abductor canal block had been provided in the holding area. Gonzalez catheter was placed in sterile fashion. A left thigh turn was then placed in the left lower extremities then prepped and draped in usual sterile fashion. The left leg was elevated and exsanguinated with use of an Esmarch and the tourniquet was placed at 300 mmHg. An anterior approach the left knee was then performed to longitudinal incision centered over the patella. Sharp dissection was carried through subcutaneous tissue down the extensor mechanism. Medial parapatellar arthrotomy incision was made. Some subperiosteal dissection was carried out medially. The fat pad was dissected from Neath patella tendon. The lateral patellofemoral ligament was released. Patella subluxated laterally and the knee was flexed. The osteophytes taken off distal femur. The ACL and PCL were then released from distal femur the tibia subluxated anteriorly. The external tibial alignment jig was then placed in the interface the tibia and adjusted 14 mm medially. Proximal tibial cut was made remove about a millimeter of bone from most deficient aspect medial tibial plateau. Some osteophytes taken off medial and posterior medially. The tibia sized to a size 71. Attention drawn the femur. The distal femur was then with a sharp drill. Intramedullary canal was suction. A left 5 degree valgus cutting guide was placed. This femoral cutting block was pinned in place. Distal femoral cut was made to take an additional 3 mm of bone off the distal femur. The femur was then sized to a size 65. The AP cutting block was pinned parallel to the epicondylar axis which was 5 degrees. The anterior cut, anterior chamfer, posterior cut, posterior chamfer cuts were made. The box cutting guide was placed in just slight was made. The knee was flexed. The remnants of the medial and lateral menisci were excised. The osteophytes were taken off the posterior aspect of femur. A trial femoral component was placed. The tibial tray was pinned in maximum external rotation and the drill and stem punch were used to create defect in proximal tibia for the tibial tray. Knee was then trialed and the 10 mm insert fit most appropriately. Attention drawn the patella. The patella was cleaned of all soft tissue. Patella thickness measured 22 mm in thickness was cut down to 14. Was sized to a size 28 patella. The lug holes were drilled for the 28 patella. The lateral osteophytes removed. Patella button was placed. Knee was taken through range of motion and the patella tracked nicely with no thumbs test. Attention drawn to place the permanent components. All trial components were removed. Bone plug was placed in the distal femur limit blood loss. Double batch Palacos G cement was mixed. Biomet Pyregguard size 65 left posterior stabilized femoral component, size 71 tibial tray, a 10 mm posterior stabilized polyethylene insert, and a 28 x 8 all poly patella were then cemented in place. The knee was brought out into full extension till cement hardened. Final cement check was then performed. The pericapsular tissues were injected with total of 100 cc of combination of 20 cc of Exparel, 30 cc of normal saline, 50 cc of quarter percent Marcaine with epinephrine. Patient did receive 1 g tranexamic acid. The tourniquet was let down for final tourniquet time 58 minutes. Hemostasis reduced electrocautery. Extensor mechanism closed with combination 1 PDS suture #1 Vicryl suture in a [id number] fashion. Extensor mechanism checked found to be intact and the subcutaneous tissues then closed with 2 Dexon suture in a buried interrupted fashion skin was closed skin genie. Leg was then cleaned and dried and sterile dressed with Xeroform, 4 x 4's, sterile cast padding, Anderson bandage were applied. Patient then transferred to the recovery room in stable condition. Patient tolerated procedure well and there were no complications. Abebe Martinez, my physician pharmacist assistant, was present for the entire procedure. His assistance was essential and required for appropriate patient positioning, prepping and draping, surgical exposure, performing the technical details of the operation, placement the implants, closure of the wound, and placement of the sterile bandage. I attest to the content of the Intraoperative Record and any orders documented therein. Any exceptions are noted below.
--- NOTE | 2022-11-02 11:10 | XRay Report ---
XR knee LT 1 or 2V routine CLINICAL HISTORY: Surgical Post Op TECHNIQUE: 2 views of the left knee were obtained. Comparison: Comparison is made to knee radiographs 09/17/2022 FINDINGS: Patient is status post total knee arthroplasty with expected postsurgical changes including soft tiss ue swelling and subcutaneous emphysema. No periarticular lucency or hardware fracture is seen. IMPRESSION: Expected postoperative appearance status post placement of total knee arthroplasty. ACT 112: Negative or not required by law. Electronically signed by: Bladimir Rome M.D. 11/02/2022 11:09 AM
--- NOTE | 2022-11-02 11:44 | Anesthesiology Progress Note ---
Date of Service November 02, 2022 Anesthesia Post Procedure Vital Signs Vital Signs: Temp Pulse Pulse Resp BP Pulse Ox O2 Del Method 11/02/22 11:30 36.5 C 80 13 103/53 L 96 Room Air 11/02/22 11:20 78 12 105/46 L 96 Room Air 11/02/22 11:10 85 18 94/56 L 94 Room Air 11/02/22 11:15 79 11/02/22 11:00 82 15 105/49 L 97 Oxymask 11/02/22 10:50 83 13 97/54 L 97 Oxymask 11/02/22 10:44 36.0 C L 86 16 106/59 L 94 Oxymask 11/02/22 07:00 36.8 C 82 20 123/69 95 Room Air O2 Flow Rate 11/02/22 11:30 11/02/22 11:20 11/02/22 11:10 11/02/22 11:15 11/02/22 11:00 4 11/02/22 10:50 8 11/02/22 10:44 8 11/02/22 07:00 Pain Intensity Left Knee: Pain Intensity: 0 Transfer of Care Handoff Completed per policy Notes Mental Status: alert / awake / arousable and participated in evaluation Patient Amnestic to Procedure: Yes Nausea / Vomiting: adequately controlled Pain: adequately controlled Airway Patency, RR, SpO2: stable & adequate BP & HR: stable & adequate Hydration State: stable & adequate Anesthetic Complications: no major complications apparent and Pt Satisfied with anesthetic care Notes: pt c/o chest pain. diffuse pain described as heaviness. non radiating to jaw/ arm. tied to breathing. pt cta b/l. ekg showed nsr with LAD. pt ok to go to floor
[2022-11-02] MEDS ORDERED: HYDROmorphone INJ 0.5 MG/0.5 ML SYR IV PRN (11:59)
[2022-11-02] MEDS ORDERED: SECUKINUMAB 150 MG/ML SQ SCH (11:59)
[2022-11-02] MEDS ORDERED: NALOXONE HCL 0.4 MG/1 ML VIAL/CARP IV PRN (11:59)
[2022-11-02] MEDS ORDERED: ALBUTEROL HFA 8 GM INHALER INH PRN (11:59)
[2022-11-02] MEDS ORDERED: METOCLOPRAMIDE HCL INJ 5 MG/ML 2 ML VIAL IV PRN (11:59)
[2022-11-02] MEDS ORDERED: ALUMINUM/MAGNESIUM SUSP 30 ML UDC PO PRN (11:59)
[2022-11-02] MEDS ORDERED: MAGNESIUM HYDROXIDE SUSP 30 ML UDC PO PRN (11:59)
[2022-11-02] MEDS ORDERED: bisacodyL 10 MG SUPP PR PRN (11:59)
[2022-11-02] MEDS ORDERED: EPINEPHrine INJ 1 MG/ML AMP IM PRN (12:25)
[2022-11-02] MEDS: KETOROLAC 30 MG/ML VIAL IV SCH ×2 (12:50→19:42)
[2022-11-02] MEDS: SODIUM CHLORIDE 0.9% 1000ML 1,000 ML IV SCH ×2 (12:51→22:45)
[2022-11-02] MEDS: ACETAMINOPHEN 500 MG TAB PO SCH ×2 (12:59→20:30)
[2022-11-02] MEDS: oxyCODONE HCL IR 5 MG TAB (IMMEDIATE RELEASE) PO PRN ×2 (14:20→20:29)
[2022-11-02] MEDS ORDERED: TRANEXAMIC ACID / 0.7% NACL 1,000 MG/100 ML BAG IV SCH (16:45)
[2022-11-02] MEDS: Scopolamine CHECK PATCH PLACEMENT SCH (17:48)
[2022-11-02] MEDS: ASCORBIC ACID 500 MG TAB PO SCH (17:59)
[2022-11-02] MEDS: ceFAZolin 2000MG 2,000 MG/15 ML SYR IV SCH (17:59)
[2022-11-02] MEDS: ASPIRIN 81 MG ECTAB PO SCH (20:30)
[2022-11-02] MEDS: DOCUSATE SODIUM 100 MG CAP PO SCH (20:30)
[2022-11-02] MEDS ORDERED: SENNA 8.6 MG TAB PO SCH ×2 (21:00)
[2022-11-03] MEDS: KETOROLAC 30 MG/ML VIAL IV SCH ×2 (00:30→05:52)
[2022-11-03] MEDS: ceFAZolin 2000MG 2,000 MG/15 ML SYR IV SCH (00:30)
[2022-11-03] MEDS: Scopolamine CHECK PATCH PLACEMENT SCH ×2 (00:30→07:57)
[2022-11-03] MEDS: oxyCODONE HCL IR 5 MG TAB (IMMEDIATE RELEASE) PO PRN ×2 (03:14→09:19)
[2022-11-03] MEDS ORDERED: LEVOTHYROXINE SODIUM 175 MCG TABLET PO SCH (06:30)
[2022-11-03] MEDS: ASCORBIC ACID 500 MG TAB PO SCH (07:57)
[2022-11-03] MEDS: ASPIRIN 81 MG ECTAB PO SCH (08:00)
[2022-11-03] MEDS: ACETAMINOPHEN 500 MG TAB PO SCH (08:00)
[2022-11-03] MEDS ORDERED: dexAMETHasone 10 MG in SYRINGE 0 ML IV SCH (08:00)
[2022-11-03] MEDS: DOCUSATE SODIUM 100 MG CAP PO SCH (08:04)
[2022-11-03 08:54] LABS: Hematocrit (blood only) 35.4 % (37.0-47.0); Hemoglobin 11.9 g/dl (12.0-16.0); Mean Corpuscular Hemoglobin 30.1 pg (25.0-34.0); Mean Corpuscular Hgb Conc 33.6 g/dL (32.0-36.0); Mean Corpuscular Volume 89.6 fL (80.0-100.0); Mean Platelet Volume 10.1 fL (9.4-12.4); Platelet Count 223 K/uL (130-400); RDW Coefficient of Variation 11.8 % (11.5-14.5); RDW Standard Deviation 38.5 fL (36.4-46.3); Red Blood Count 3.95 M/uL (4.20-5.40); White Blood Count 17.35 K/ul (4.8-10.8)
[2022-11-03] MEDS ORDERED: FLUTICASONE/VILANTEROL 200/25MCG 14 PUFFS/INHALER INH SCH (09:00)
[2022-11-03] MEDS ORDERED: PANTOprazole 40 MG TAB PO SCH (09:00)
[2022-11-03] MEDS ORDERED: MONTELUKAST SODIUM 10 MG TABLET PO SCH (09:00)
[2022-11-03] MEDS ORDERED: FOLIC ACID 1 MG TAB PO SCH (09:00)
[2022-11-03] MEDS ORDERED: dilTIAZem HCL 180 MG CAPCR PO SCH (09:00)
[2022-11-03] MEDS ORDERED: MULTIVITAMIN TAB PO SCH (09:00)
[2022-11-03] MEDS ORDERED: FUROSEMIDE 40 MG TAB PO SCH (09:00)
[2022-11-03] MEDS ORDERED: POTASSIUM CHLORIDE CRTAB 20 MEQ TABCR PO SCH (09:00)
--- NOTE | 2022-11-03 09:13 | Orthopedic Progress Note ---
Date of Service November 03, 2022 Assessment & Plan (1) Status post left knee replacement: 62-year-old female postop day 1 from left knee replacement doing pretty well. Having some pain but nothing urinary. The pain medicine is working. Medically appears stable. Hoping to go home. Plan: 1. DVT prophylaxis including thigh-high teds, SCDs, aspirin twice a day. 2. PT OT. Weight-bear as tolerated left total knee protocol # 3 pain control doing well with current pain regimen # 4 disposition plan to discharge to home. She is going to outpatient therapy at [facility] like she did for her other knee. Subjective . 62-year-old female postop day 1 from left knee replacement. She is doing pretty well. Had a moderate bout of pain yesterday for the pain control helped. She has been walking around some. No chest pain or shortness of breath. Not feeling dizzy or lightheaded. She is hoping to go home today. Review of Systems All systems reviewed & are unremarkable except as noted in HPI & below. Physical Exam . Examination of the reveals the patient is lying in bed looks pretty comfortable. Examination left leg reveals a dressing clean dry and intact and she can dorsiflex and plantarflex her foot appropriate. She had a good straight leg raise. Respiratory normal respiratory effort, lungs clear to auscultation Cardiovascular RRR, no murmur, no edema Gastrointestinal (Abdomen) normal bowel sounds, soft, nontender, no hepatosplenomegaly Results & Data Results & Data Laboratory Results . Hemoglobin is 11.9. Hematocrit is 35.4. Electrolytes are pending. Diagnostic Findings . PG Care Time/CCT Total # of Minutes Spent Total Time Spent with Patient: Total time spent is greater than 50% in coordination of care (as documented) at patient's floor/unit and/or counseling patient: Coding Level of Care Code 13008 Post Operative Follow-Up Diagnoses Status post left knee replacement Z96.652
[2022-11-03 09:15] LABS: Calcium 8.6 mg/dl (8.6-10.3); Creatinine Clr Calc Pharmacy 78.5 ml/min; Est GFR (African American) 79.4 ml/min; Est GFR (Non-African American) 68.5 ml/min; Potassium 4.1 mmol/L (3.5-5.1)
[2022-11-04] MEDS ORDERED: LEVOTHYROXINE SODIUM 150 MCG TABLET PO SCH (06:30)
--- NOTE | 2022-11-06 11:33 | Electrocardiogram Report ---
Test Reason : Blood Pressure : / mmHG Vent. Rate : 079 BPM Atrial Rate : 079 BPM P-R Int : 156 ms QRS Dur : 084 ms QT Int : 420 ms P-R-T Axes : 047 -34 033 degrees QTc Int : 481 ms Normal sinus rhythm Left axis deviation Abnormal ECG When compared with ECG of 20-JUL-2022 09:14, Nonspecific T wave abnormality now evident in Inferior leads Confirmed by Micha Tao ([id number]) on 11/06/2022 11:32:36 AM Referred By: Conor Toussaint Confirmed By:Micha Tao
== END 2022-11-03 11:05 | disposition home or self-care (01) ==
LOC: 3N 06:39 → ASU 06:39